=== PATIENT | male | born 1955 | race Caucasian/White ===

== ENCOUNTER 2017-08-16 15:14 | Emergency (ER) | payer BC, OTHER ==
[~2017-08-16] VITALS: Ht 162.6 cm; Wt 52.3 kg
[2017-08-16 15:17] VITALS: Ht 162.6 cm; Wt 52.3 kg
[2017-08-16 16:35] LABS: URINE BLOOD (Dip) POC Trace-lysed (NEGATIVE)
--- NOTE | 2017-08-16 17:45 | ERD ---
ER Documentation Chief Complaint Chief Complaint urine retention since last night HPI This patient is an otherwise healthy 62-year-old male presented to the emergency department for acute urinary retention. His last urination was at 9 PM yesterday. He has never had this in the past. He denies recent surgery. Associated symptoms include mild pain to the suprapubic area. No fevers, chills , or other symptoms reported at this time. ROS All systems reviewed and are negative except as per history of present illness. Allergies Allergies: Coded Allergies: No Known Allergy (Unverified , 08/16/17) PMhx/Soc Hx Alcohol Use: No Hx Substance Use: No Hx Tobacco Use: No Physical Exam Vitals Vital Signs Date Time Temp Pulse Resp B/P Pulse Ox O2 Delivery O2 Flow Rate FiO2 08/16/17 15:17 97.9 67 18 145/70 97 Physical Exam Const: Nontoxic, well-appearing male in no acute distress. Head: Atraumatic Eyes: Normal Conjunctiva ENT: Normal External Ears, Nose and Mouth. Neck: Full range of motion..~ No meningismus. Abd: Soft, non tender, non distended. Normal bowel sounds. Mild suprapubic tenderness palpation with bladder fullness noted. Exam: Scrotum: [Normal] Penis: Uncircumcised, normal in appearance. Discharge: [None] Skin: No petechiae or rashes Ext: No cyanosis, or edema Neur: Awake and alert Psych: Normal Mood and Affect Results 24 hrs Laboratory Tests Test 08/16/17 16:34 Bedside Urine pH (LAB) 5.5 Bedside Urine Protein (LAB) Negative Bedside Urine Glucose (UA) Negative Bedside Urine Ketones (LAB) 1+ Bedside Urine Blood Trace-lysed Bedside Urine Nitrite (LAB) Negative Bedside Urine Leukocyte Esterase (L Negative Procedures/MDM Patient is a very pleasant 62-year-old male presenting for acute urinary retention. Physical examination did show bladder distention. Gallego catheter inserted successfully by nursing staff with significant amount of urine drained. Urine dip was negative for signs of infection. The patient was stable for discharge with instructions for close follow-up with urology. No sign of pyelonephritis, sepsis, or other emergent conditions. No evidence of life-threatening pathology at time of discharge. Pt/family in agreement with discharge plan/diagnosis. Pt/family advised to return immediately with any new or worsening symptoms. Follow-up with primary care physician within the next 1- 2 days. Departure Diagnosis: Primary Impression: Urinary retention Condition: Fair Patient Instructions: Urinary Retention, Male Referrals: ANAND CARMONA MD,DIANA SOL,BRANDIN PITTMAN,NEPTALI MCLEAN,CHELA URIBE [facility] YOU HAVE RECEIVED A MEDICAL SCREENING EXAM AND THE RESULTS INDICATE THAT YOU DO NOT HAVE A CONDITION THAT REQUIRES URGENT TREATMENT IN THE EMERGENCY DEPARTMENT. FURTHER EVALUATION AND TREATMENT OF YOUR CONDITION CAN WAIT UNTIL YOU ARE SEEN IN YOUR DOCTORS OFFICE WITHIN THE NEXT 1-2 DAYS. IT IS YOUR RESPONSIBILITY TO MAKE AN APPOINTMENT FOR FOLOW-UP CARE. IF YOU HAVE A PRIMARY DOCTOR --you should call your primary doctor and schedule an appointment IF YOU DO NOT HAVE A PRIMARY DOCTOR YOU CAN CALL OUR PHYSICIAN REFERRAL HOTLINE AT IF YOU CAN NOT AFFORD TO SEE A PHYSICIAN YOU CAN CHOSE FROM THE FOLLOWING ON LICENSE OF [facility] [address] [facility]. [facility] [address] [facility] [facility] [address] [facility] [facility] [address] [facility] [address] [facility]. [facility]. [address] Additional Instructions: Call your primary care doctor TOMORROW for an appointment during the next 1-2 days.See the doctor sooner or return here if your condition worsens before your appointment time. SPECIALIST: YOU HAVE A MEDICAL CONDITION WHICH REQUIRES YOU TO SEE A SPECIALIST WITHIN THE NEXT 1-2 DAYS. PLEASE FOLLOW UP WITH YOUR PRIMARY PHYSICIAN FOR REFFERAL.IF YOU DO NOT HAVE A PRIMARY CARE PHYSICIAN AND/OR YOU CAN NOT AFFORD TO SEE A PHYSICIAN THE FOLLOWING RESOURCES HAVE BEEN SUPPLIED TO YOU. IT IS YOUR RESPONSIBILITY TO BE SEEN BY THE SPECIALIST JONY KINSEY PA-C Aug 16, 2017 17:45
== END 2017-08-16 17:17 | disposition home or self-care (01) ==
LOC: FTE 15:14
DX: R33.9 Retention of urine, unspecified (principal)
CPT/HCPCS: 81003; Z7502; 99282

== ENCOUNTER 2018-01-14 13:06 | Day surgery (SDC) | END 2018-01-14 18:22 | disposition home or self-care (01) ==